=== PATIENT | male | born 1995 | race Caucasian/White ===

== ENCOUNTER 2022-02-05 14:21 | Outpatient (REF) | payer SELFPAY ==
[2022-02-08 11:12] LABS: Hepatitis B Surface Ag Negative (Negative); Hepatitis C Ab w Rflx HCV PCR Negative (Negative)
[2022-02-08 11:20] LABS: HIV-1/2 Ag & Ab Screen Negative (Negative)
[2022-02-08 12:18] LABS: Hep A Total Ab w Rflx IgM Negative (Negative)
== END 2022-02-05 14:22 | disposition home or self-care (01) ==
LOC: LBN 14:21
PROVIDERS: Visit Provider Family Medicine
DX: Z11.59 Encounter for screening for other viral diseases (principal); Z11.4 Encounter for screening for human immunodeficiency virus [HIV]
CPT/HCPCS: 86709; 86803; 87340; 87389

== ENCOUNTER 2022-06-16 06:35 | Emergency (ER) | payer SELFPAY ==
[2022-06-16 06:48] VITALS: BP 117/61; PULSE 59; RESP 16; TEMP 36.7; O2SAT 99
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
[2022-06-16] MEDS: Erythromycin Ophth Oint 3.5 GM TUBE (07:19)
[2022-06-16] MEDS: Tetracaine 0.5% 4 ML BTL (07:19)
[2022-06-16] MEDS: Fluorescein STRIPS 100/BOX 1 MG (07:19)
== END 2022-06-16 07:22 | disposition home or self-care (01) ==
PROVIDERS: Emergency Provider Student in an Organized Health Care Education/Training Program
DX: S05.01XA Injury of conjunctiva and corneal abrasion without foreign body, right eye, initial encounter (principal); H11.31 Conjunctival hemorrhage, right eye; X58.XXXA Exposure to other specified factors, initial encounter
CPT/HCPCS: 99283; 99284

== ENCOUNTER 2023-02-17 17:51 | Outpatient (REF) | payer SELFPAY ==
[2023-02-20 10:05] LABS: HIV-1/2 Ag & Ab Screen Negative (Negative)
[2023-02-21 10:32] LABS: Hep A Total Ab w Rflx IgM Negative (Negative)
[2023-02-21 11:11] LABS: Hepatitis C Ab w Rflx HCV PCR Negative (Negative)
[2023-02-21 13:34] LABS: Hepatitis B Surface Ag Negative (Negative)
== END 2023-02-17 17:52 | disposition home or self-care (01) ==
LOC: LBN 17:51
PROVIDERS: Visit Provider Physician Assistant Medical
DX: Z13.9 Encounter for screening, unspecified (principal)
CPT/HCPCS: 86709; 86803; 87340; 87389

== ENCOUNTER 2023-06-15 21:26 | Outpatient (REF) | payer SELFPAY | END 2023-06-15 21:27 | disposition home or self-care (01) | LOC: NCHCN 21:26 | PROVIDERS: Visit Provider Physician Assistant | DX: L02.212 Cutaneous abscess of back [any part, except buttock and flank] (principal) | CPT/HCPCS: 87077; 87070; 87186; 87205 ==

== ENCOUNTER 2023-06-17 21:01 | Emergency (ER) | payer SELFPAY ==
[2023-06-17 21:05] VITALS: BP 132/74; PULSE 53; RESP 16; TEMP 36.5; O2SAT 100
--- NOTE | 2023-06-17 21:29 | W.ED.GENAD ---
Discharge Plan Disposition Patient Disposition: Home Discharge Details Clinical Impression: Infected sebaceous cyst Primary Care Provider: None,None ED Provider: Mario Lay Home Meds and New Rx's Prescriptions: New sulfamethoxazole-trimethoprim [Bactrim DS] 800-160 mg tablet 1 tab PO BID 5 Days Qty: 10 0RF No Action mupirocin 2 % ointment 1 applic topical TID Qty: 15 0RF Discharge Instructions Additional Instructions: You were seen in the emergency department for your cyst which had signs of infection. Your abscess was opened and drained. You are receiving antibiotic which should treat the infection from your swab at urgent care. A loop drain was left in place. As we discussed. Please try to leave this task for 5 to 6 days to ensure that your abscess heals from the bottom up rather than from the top down. As we discussed if you develop fevers chills nausea vomiting or if you cannot tolerate your antibiotics please return to the emergency department. If you have recurrent abscesses you may consider following up with your primary care provider. Please start taking your antibiotics in the morning tomorrow. Discharge Data Discharge Date/Time-TO BE ENTERED AT DEPARTURE: 06/17/23 22:05 Medical Decision Making This is an overall very well-appearing normothermic and not tachycardic 28-year-old male with an infected sebaceous cyst which is formed an abscess 2 days status post I&D now with ultrasound consistent with recurrent abscess for which patient will undergo recurrent I&D. Please see procedure note but I placed a loop drain and instructed the patient and his girlfriend on managing loop drain. Patient had Staph aureus on his preliminary swab result. We will cover for MRSA with trimethoprim/sulfamethoxazole and I gave patient first dose in the ED. No pain out of proportion to suggest necrotizing soft tissue infection. Patient's abscess is not overlying his spine so my suspicion for any cutaneous manifestation of a neurological malignancy is exceedingly low as I do not feel that the patient requires cross-sectional imaging. Patient and I did discuss that if he did have recurrent abscesses at this site that he should follow-up with her primary care provider. I given return indications including any fevers chills could not tolerate his antibiotics as result of nausea or vomiting or if he had any other concerns that he should return to the emergency department. HPI General Date/Time Provider Initiated Documentation: 06/17/23 21:06. 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 He had an abscess 6 months ago which required incision and drainage and a loop drain was placed. He was also seen 2 days ago after his abscess became red and more uncomfortable. He denies specific trauma to this area. He was seen at urgent care and he had an incision and drainage performed. A culture swab was sent. He noticed worsening swelling and feels as if his abscess has recurred. He denies fevers chills nausea vomiting chest pain shortness of breath. From urgent care, he was observed off of antibiotics. He reports subsequently he has had worsening pain Related Data Home Medications Medication Instructions Recorded Confirmed mupirocin 2 % topical ointment 1 applic topical TID #15 grams 06/15/23 06/17/23 sulfamethoxazole 800 1 tab PO BID 5 days #10 tabs 06/17/23 mg-trimethoprim 160 mg tablet (Bactrim DS) Previous Rx's Medication Instructions Recorded mupirocin 2 % topical ointment 1 applic topical TID #15 grams 06/15/23 sulfamethoxazole 800 1 tab PO BID 5 days #10 tabs 06/17/23 mg-trimethoprim 160 mg tablet (Bactrim DS) Allergies Allergy/AdvReac Type Severity Reaction Status Date / Time No Known Allergies Allergy Unverified 06/17/23 21:12 General Stated Complaint: RashLesion SEBASTIAN: 5 PFSH All Active Problems (Updated 06/17/23 @ 22:03 by Mario Lay MD) Infected sebaceous cyst (Acute) Social History Smoking/Tobacco Use Status: Never Smoking risk assessment performed?: Yes Alcohol Intake: never Drug use: Never Substance use type: does not use Do you feel safe at home: Yes Do you feel safe in your relationship?: Yes Exam Narrative Exam Narrative: General: Well-appearing in no acute distress speaking in complete sentences. Head: Normocephalic, atraumatic. Eye: Extraocular eye movements intact. No conjunctival injection. No scleral icterus. Ear, nose, mouth, throat: Grossly normal inspection. Normal voice, handling secretions normally. Neck: Trachea midline. Cardiovascular: Well-perfused distal extremities. Back: Chest on the right lateral side of the mid thoracic back off of midline there is a fluctuant and erythematous area with tenderness. No spontaneous drainage. No pain out of proportion. Respiratory: Nonlabored respiration. Gastrointestinal: Nondistended abdomen. Musculoskeletal: No edema. Moving all 4 extremities spontaneously. Skin: Normal for age and race, grossly normal temperature and turgor. No acute rash. Neurologic: Alert and appropriate, no apparent acute deficits. Psychiatric: Mood and manner are appropriate. Grooming and personal hygiene are appropriate. Course Vital Signs Vital signs: Vital Signs Temperature 36.5 C 06/17/23 21:05 Pulse 53 L 06/17/23 21:05 Respiratory Rate 16 06/17/23 21:05 Blood Pressure 132/74 06/17/23 21:05 Pulse Oximetry 100 06/17/23 21:05 Temperature 36.5 C 06/17/23 21:05 Pulse 53 L 06/17/23 21:05 Respiratory Rate 16 06/17/23 21:05 Respiratory Effort Normal 06/17/23 21:08 Blood Pressure 132/74 06/17/23 21:05 Pulse Oximetry 100 06/17/23 21:05 Oxygen Delivery Method Room Air 06/17/23 21:05 Oxygen Flow Rate 0 06/17/23 21:05 Pain Level 0 06/17/23 21:05 Procedures Abscess I/D Site: Back Side (if applicable): Right Local Anesthetic: Lidocaine 2% and With Epi Amount of anesthesia used (mL): 8 Technique: Incised with #11 Blade Amount of fluid expressed (mL): 6 Irrigation: No Packing used?: Chuck Drain (Loop drain using tenderness drain) Complications: Other ( Sterile prep was used prior to incision and drainage which patient tolerated well with no complications.) POCUS Exam (ED) Limited Soft Tissue Exam DATE OF EXAM: 06/17/23 TIME OF EXAM: 22:06 LOCATION OF EXAM: Upper back/right side REASON FOR EXAM: Abscess Exam Complete DIFFERENTIAL DIAGNOSES: Positive swirl sign with anechoic fluid collection with posterior enhancement most consistent with abscess.
[2023-06-17] MEDS: Ibuprofen 400 MG TAB PO (22:06)
[2023-06-17] MEDS: Sulfameth/Trimeth DS TAB 1 TAB PO (22:06)
[2023-06-17] MEDS: Acetaminophen 500 MG TAB 1000 MG PO (22:06)
== END 2023-06-17 22:05 | disposition home or self-care (01) ==
PROVIDERS: Emergency Provider Emergency Medicine
DX: L72.3 Sebaceous cyst (principal)
CPT/HCPCS: 10061; 76604; 99283; 99284

== ENCOUNTER 2024-01-15 15:53 | Emergency (ER) | payer SELFPAY ==
[2024-01-15 15:54] VITALS: BP 127/73; PULSE 70; RESP 12; TEMP 36.6; O2SAT 100
--- NOTE | 2024-01-15 16:15 | DI.RAD_ITS ---
Exam(s) XR KNEE LT 4V+ EXAM: XR KNEE LT 4V+ CLINICAL HISTORY: L knee injury (hyperextension). TECHNIQUE: 2D digital imaging was performed. COMPARISON: No exams were available for comparison FINDINGS: Four views. No evidence of fracture but there is a joint effusion signifying probable internal derangement. Bone density normal. No osseous lesions. No joint space narrowing. IMPRESSION: No acute osseous findings in left knee but there is a joint effusion signifying probable internal santosh angement. Appropriate follow-up is recommended. DATA REPOSITORY: RADIATION DOSE DELIVERED:
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
--- NOTE | 2024-01-15 16:56 | DI.VRAD_ITS ---
PROCEDURE INFORMATION: Exam: XR Left Knee Exam date and time: 01/15/2024 4:27 PM Age: 28 years old Clinical indication: Injury or trauma; Other: L knee injury (hyperextension); Sprain or strain; Patella or knee; Left TECHNIQUE: Imaging protocol: Radiologic exam of the left knee. Views: 4 or more views. COMPARISON: No relevant prior studies available. FINDINGS: Bones/joints: Small knee joint effusion. Neutral patellar tracking. Soft tissues: Normal. IMPRESSION: No acute fracture or dislocation. Dictated and Authenticated by: Greg Licona MD. Ordering:SACHI Love MD
== END 2024-01-15 17:18 | disposition home or self-care (01) ==
PROVIDERS: Emergency Provider Nurse Practitioner Family
DX: M25.562 Pain in left knee (principal); M25.462 Effusion, left knee
CPT/HCPCS: 99283; 73564

== ENCOUNTER → 2024-02-02 03:19 | Outpatient (CLI) | payer SELFPAY ==
--- NOTE | 2024-02-02 07:45 | DI.MRI_ITS ---
Exam(s) MR LOWER JOINT LT WO EXAM: MR LOWER JOINT LT WO CLINICAL HISTORY: L KNEE PAIN,INTERNAL DERANGEMENT,M23.92. TECHNIQUE: Multiplanar multisequence MRI was performed. COMPARISON: CR,XR XR KNEE LT 4V+ from 01/15/2024 FINDINGS: BONES: Contusion of the medial femoral condyle posteriorly. Contusion of the anterior aspects of bot h lateral and medial proximal tibia. JOINTS: A small joint effusion is present. Articular cartilage: Patellofemoral joint: Articular cartilage is unremarkable. Medial femoral tibial joint: Articular cartilage is unremarkable. Lateral femoral tibial joint: Articular cartilage is unremarkable. TENDONS: Extensor mechanism: Unremarkable. Medial retinaculum: Unremarkable. Lateral retinaculum: Unremarkable. Popliteus: Unremarkable. high signal in the proximal aspect of the medial gastrocnemius tendon versus posterior capsule at the posteromedial aspect of the medial femoral condyle MUSCLES: Unremarkable. MENISCI: The medial meniscus is unremarkable. The lateral meniscus is unremarkable. SOFT TISSUES: Small popliteal cyst. LIGAMENTS: Anterior Cruciate: Mild edema. No focal tear. Posterior Cruciate: Unremarkable. Medial Collateral:Unremarkable. Lateral Collateral: Unremarkable. IMPRESSION: Bone contusions of the anterior aspect of the tibia and medial femoral condyle, non articular. High signal at the origin of the medial head of the gastrocnemius/posterior capsule consistent with p artial tear. Small joint effusion. Question of ACL sprain. DATA REPOSITORY:
== END ==
PROVIDERS: Visit Provider Student in an Organized Health Care Education/Training Program
DX: M25.562 Pain in left knee (principal); M25.462 Effusion, left knee; M23.8X2 Other internal derangements of left knee; S83.8X2A Sprain of other specified parts of left knee, initial encounter
CPT/HCPCS: 73721

== ENCOUNTER 2024-06-04 20:24 | Outpatient (REF) | payer SELFPAY ==
--- OUTSIDE RECORDS SUMMARY | 2024-06-04 20:27 | XMS_ITS | Encounter Summary ---
Author Organization [facility] Address [address] [place] [address] Care Team Providers Care Pillow Filler Name Role Phone None, Provider Primary Care Provider Unavailabl e Encounter Details Date Type Department Care Team (Late st Contact Info) Description 02/18/2023 Lab Requisition [facility] Pathology & Laboratory Medicine - [facility] [address] [place], [place] [address] Outr Resulting Lab, Provider Social History Tobacco Use Types Packs/Day Years Used Date Smoking Tobacco: Never Smokeless Tobacco: Never Alcohol Use Standard Drinks/Week Comments Yes 0 (1 standard drink = 0.6 oz pur e alcohol) occasional Sex and Gender Information Value Date Recorded Sex Assigned at Not on file Gender Identity Male 03/20/2022 22:48 EDT Sexual Orientation Not on file documented as of this encounter Plan of Treatment Not on file documented as of this encounter Procedures Procedure Name Priority Date/Time Associated Diagnosis Comments HOLD SST Today 02/17/2023 14:30 EDT HEPATITIS C AB W REFLEX TO HCV RNA BY PCR Today 02/17/2023 14:30 EDT HEPATITIS A TOTAL ANTIBODY W REFLEX Today 02/17/2023 14:30 EDT HEPATITIS B SURFACE ANTIGEN Today 02/17/2023 14:30 EDT documented in this encounter Results * HOLD SST (02/17/2023 14:30 EDT) Hold Hold 02/18/2023 20:16 EDT [facility] Blood VENOUS BLOOD / Unknown 02/17/2023 14:30 EDT 02/18/2023 19:12 EDT Provider Outr Resulting Lab LAB INFO SER VICE AND SUPPORT & PHONE RESULT Performing Organization Address [facility]/ZIP Co de Phone Number [facility] [address] [place] [address] * HEPATITIS B SURFACE ANTIGEN (02/17/2023 14:30 EDT) Hep B Surface Ag Negative Negative 02/21/2023 13:30 EDT [facility] Blood VENOUS BLOOD / Unknown 02/17/2023 14:30 EDT 02/18/2023 18:58 EDT Provider Outr Resulting Lab CHEMISTRY & BLOOD GAS ORDERABLES Performing Organization Address [facility] Co de Phone Number [facility] [address] [place] [address] * HEPATITIS C AB W REFLEX TO HCV RNA BY PCR (02/17/2023 14:30 EDT) Hep C Antibody Negative Negative 02/21/2023 11:06 EDT [facility] Blood VENOUS BLOOD / Unknown 02/17/2023 14:30 EDT 02/18/2023 18:58 EDT Provider Outr Resulting Lab CHEMISTRY & BLOOD GAS ORDERABLES Performing Organization Address [facility] Co de Phone Number [facility] [address] [place] [address] * HEPATITIS A TOTAL ANTIBODY W REFLEX (02/17/2023 14:30 EDT) Hepatitis A Antibody, Total Negative Negative 02/21/2023 10:27 EDT [facility] Blood VENOUS BLOOD / Unknown 02/17/2023 14:30 EDT 02/18/2023 18:58 EDT Narrative [facility] - 02/21/2023 10:27 EDT The result of this assay can be falsely elevated (Positive) due to the consumption of Biotin. Provider Outr Resulting Lab CHEMISTRY & BLOOD GAS ORDERABLES [facility] [address] [place] [address] documented in this encounter Visit Diagnoses Not on filedocumented in this encounter Care Teams Pillow Filler Relationship Specialty Start Date End Date None, Provider PCP - General 03/20/22 documented as of this encounter
--- OUTSIDE RECORDS SUMMARY | 2024-06-04 20:27 | XMS_ITS | Referral Summary ---
Author Organization [facility] Address [address] [place] [address] Care Team Providers Care Water Systems Engineer Name Role Phone None, Provider Primary Care Provider Unavailabl e Encounters Date Type Department Care Team Description 06/04/2024 Lab Requisition [facility] Pathology & Laboratory [address] [address] Outr Resulting Lab, Provider 06/04/2024 Lab Requisition [facility] & [facility] [address] [address] Outr Resulting Lab, Provider from Last 3 Months Allergies No known active allergies Medications No known medications Active Problems No known active problems Social History Tobacco Use Types Packs/Day Years Used Date Smoking Tobacco: Never Smokeless Tobacco: Never Alcohol Use Standard Drinks/Week Comments Yes 0 (1 standard drink = 0.6 oz pur e alcohol) occasional Sex and Gender Information Value Date Recorded Sex Assigned at Not on file Gender Identity Male 03/20/2022 22:48 EDT Sexual Orientation Not on file Last Filed Vital Signs Vital Sign Reading Time Taken Comments Blood Pressure 140/76 03/20/2022 2254 EDT Pulse - - Temperature 36.9 ??C (98.4 ??F) 03/20/2022 2259 EDT Respiratory Rate 18 03/20/2022 2248 EDT Oxygen Saturation 98% 03/20/2022 2254 EDT Inhaled Oxygen Concentration - - Weight - - Height - - Body Mass Index - - Plan of Treatment Not on file Procedures Procedure Name Priority Date/Time Associated Diagnosis Comments HEPATITIS C AB W REFLEX TO HCV RNA BY PCR Today 02/17/2023 14:30 EDT from Last 3 Months or Most Recently Relevant to Health Maintenance Results * HEPATITIS C AB W REFLEX TO HCV RNA BY PCR (02/17/2023 14:30 EDT) Hep C Antibody Negative Negative 02/21/2023 11:06 EDT [facility] Blood VENOUS BLOOD / Unknown 02/17/2023 14:30 EDT 02/18/2023 18:58 EDT Provider Outr Resulting Lab CHEMISTRY & BLOOD GAS ORDERABLES [facility] [address] [place] [address] from Last 3 Months or Most Recently Relevant to Health Maintenance Care Teams Water Systems Engineer Relationship Specialty Start Date End Date None, Provider PCP - General 03/20/22
--- OUTSIDE RECORDS SUMMARY | 2024-06-04 20:27 | XMS_ITS | Encounter Summary ---
Author Organization [facility] Address [address] [place] [address] Care Team Providers Care Process Control Manager Name Role Phone None, Provider Primary Care Provider Unavailabl e Encounter Details Date Type Department Care Team (Late st Contact Info) Description 02/06/2022 Lab Requisition [facility] Pathology & Laboratory Medicine - [facility] [address] [place], [place] [id number] Outr Resulting Lab, Provider Social History Tobacco Use Types Packs/Day Years Used Date Smoking Tobacco: Never Assessed Sex and Gender Information Value Date Recorded Sex Assigned at Not on file Gender Identity Male 03/20/2022 22:48 EDT Sexual Orientation Not on file documented as of this encounter Plan of Treatment Not on file documented as of this encounter Procedures Procedure Name Priority Date/Time Associated Diagnosis Comments HEPATITIS C AB W REFLEX TO HCV RNA BY PCR Routine 02/05/2022 13:20 EDT HEPATITIS A TOTAL ANTIBODY W REFLEX Routine 02/05/2022 13:20 EDT HEPATITIS B SURFACE ANTIGEN Routine 02/05/2022 13:20 EDT documented in this encounter Results * HEPATITIS B SURFACE ANTIGEN (02/05/2022 13:20 EDT) Hep B Surface Ag Negative Negative 02/08/2022 11:06 EDT [facility] Blood VENOUS BLOOD / Unknown 02/05/2022 13:20 EDT 02/06/2022 21:21 EDT Provider Outr Resulting Lab CHEMISTRY & BLOOD GAS ORDERABLES Performing Organization Address City/[facility]/ZIP Co de Phone Number [facility] [address] [place] [address] * HEPATITIS C AB W REFLEX TO HCV RNA BY PCR (02/05/2022 13:20 EDT) Hep C Antibody Negative Negative 02/08/2022 11:07 EDT [facility] Blood VENOUS BLOOD / Unknown 02/05/2022 13:20 EDT 02/06/2022 21:21 EDT Provider Outr Resulting Lab CHEMISTRY & BLOOD GAS ORDERABLES Performing Organization Address [facility] Co de Phone Number [facility] [address] [place] [address] * HEPATITIS A TOTAL ANTIBODY W REFLEX (02/05/2022 13:20 EDT) Hepatitis A Antibody, Total Negative Negative 02/08/2022 12:13 EDT [facility] Blood VENOUS BLOOD / Unknown 02/05/2022 13:20 EDT 02/06/2022 21:21 EDT Narrative [facility] - 02/08/2022 12:13 EDT The result of this assay can be falsely elevated (Positive) due to the consumption of Biotin. Provider Outr Resulting Lab CHEMISTRY & BLOOD GAS ORDERABLES Performing Organization Address [facility] Co de Phone Number [facility] [address] [place] [address] documented in this encounter Visit Diagnoses Not on filedocumented in this encounter Care Teams Process Control Manager Relationship Specialty Start Date End Date None, Provider PCP - General 03/20/22 documented as of this encounter
--- OUTSIDE RECORDS SUMMARY | 2024-06-04 20:27 | XMS_ITS | Encounter Summary ---
Author Organization [facility] Address [address] [place] [address] Care Team Providers Care V Belt Skiver Name Role Phone None, Provider Primary Care Provider Unavailabl e Encounter Details Date Type Department Care Team (Late st Contact Info) Description 02/07/2022 Lab Requisition [facility] Pathology & Laboratory Medicine - [facility] [address] [place], [place] [id number] Outr Resulting Lab, Provider Social History Tobacco [...] Procedure Name Priority Date/Time Associated Diagnosis Comments HIV 1/2 ANTIGEN AND ANTIBODY, 4TH GENERATION Routine 02/05/2022 13:20 EDT documented in this encounter Results * HIV 1/2 ANTIGEN AND ANTIBODY, 4TH GENERATION (02/05/2022 13:20 EDT) HIV 1 and 2 Antibody/p24 Antigen, 4th Generation Negative Negative 02/08/2022 11:15 EDT [facility] Comment:If acute HIV-1 infec tion is suspected in a high risk patient, submit plasma specimen for HIV-1 RNA quantitation test. Blood VENOUS BLOOD / Unknown 02/05/2022 13:20 EDT 02/08/2022 7:56 EDT Narrative [facility] - 02/08/2022 11:15 EDT Fourth Generation assay performed on the Siemens Goojitsuaur XPT. Provider Outr Resulting Lab IMMUNOLOGY A ND SEROLOGY ORDERABLES [facility] [address] [place] [address] documented in this encounter Visit Diagnoses Not on filedocumented in this encounter Care Teams V Belt Skiver Relationship Specialty Start Date End Date None, Provider PCP - General 03/20/22 documented as of this encounter
--- OUTSIDE RECORDS SUMMARY | 2024-06-04 20:27 | XMS_ITS | Encounter Summary ---
Author Organization [facility] Address [address] [place] [address] Care Team Providers Care Sports Doctor Name Role Phone None, Provider Primary Care Provider Unavailabl e Encounter Details Date Type Department Care Team (Late st Contact Info) Description 02/18/2023 Lab Requisition [facility] Pathology & Laboratory Medicine - [facility] [address] [place], [place] [id number] Outr Resulting Lab, Provider Social History Tobacco [...] 1/2 ANTIGEN AND ANTIBODY, 4TH GENERATION Routine 02/17/2023 14:30 EDT documented in this encounter Results * HIV 1/2 ANTIGEN AND ANTIBODY, 4TH GENERATION (02/17/2023 14:30 EDT) HIV 1 and 2 Antibody/p24 Antigen, 4th Generation Negative Negative 02/20/2023 10:00 EDT [facility] Comment:If acute HIV-1 infec tion is suspected in a high risk patient, submit plasma specimen for HIV-1 RNA quantitation test. Blood VENOUS BLOOD / Unknown 02/17/2023 14:30 EDT 02/18/2023 18:57 EDT Narrative [facility] - 02/20/2023 10:00 EDT Fourth Generation assay performed on the Siemens Centaur XPT. Provider Outr Resulting Lab IMMUNOLOGY A ND SEROLOGY ORDERABLES [facility] [address] [place] [address] documented in this encounter Visit Diagnoses Not on filedocumented in this encounter Care Teams Sports Doctor Relationship Specialty Start Date End Date None, Provider PCP - General 03/20/22 documented as of this encounter
--- OUTSIDE RECORDS SUMMARY | 2024-06-04 20:27 | XMS_ITS | Encounter Summary ---
Author Organization [facility] Address [address] [place] [address] Care Team Providers Care Production Line Solderer Name Role Phone None, Provider Primary Care Provider Unavailabl e Encounter Details Date Type Department Care Team (Late st Contact Info) Description 06/04/2024 Lab Requisition [facility] Pathology & Laboratory Medicine - [facility] [address] [place], [place] [address] Outr Resulting Lab, Provider Social History Tobacco [...] as of this encounter Plan of Treatment Scheduled Orders Name Type Priority Associated Diagnoses Orde r Schedule HIV 1/2 ANTIGEN AND ANTIBODY , 4TH GENERATION Lab Routine Ordered: 024 documented as of this encounter Visit Diagnoses Not on filedocumented in this encounter Care Teams Production Line Solderer Relationship Specialty Start Date End Date None, Provider PCP - General 03/20/22 documented as of this encounter
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
--- OUTSIDE RECORDS SUMMARY | 2024-06-04 20:27 | XMS_ITS | Encounter Summary ---
Author Organization [facility] Address [address] [place] [address] Care Team Providers Care Corporate Security Officer Name Role Phone None, Provider Primary Care Provider Unavailabl e Encounter Details Date Type Department Care Team (Late st Contact Info) Description 06/04/2024 Lab Requisition [facility] Pathology & Laboratory Medicine - [facility] [address] [place], [place] [phone] Outr Resulting Lab, Provider Social History Tobacco [...] Type Priority Associated Diagnoses Orde r Schedule HEPATITIS C AB W REFLEX TO H CV RNA BY PCR Lab Routine Ordered: 024 HEPATITIS B SURFACE ANTIGEN Lab Routine Ordered: 06/04/2024 documented as of this encounter Visit Diagnoses Not on filedocumented in this encounter Care Teams Corporate Security Officer Relationship Specialty Start Date End Date None, Provider PCP - General 03/20/22 documented as of this encounter
--- OUTSIDE RECORDS SUMMARY | 2024-06-04 20:27 | XMS_ITS | Clinical Summary ---
Author Organization [facility] Address [address] [place] [address] Care Team Providers Care Structural Technician Name Role Phone None, Provider Primary Care Provider Unavailabl e Allergies No known active allergies Medications No known medications Active Problems No known active problems Encounters Date Type Department Care Team Description 06/04/2024 Lab Requisition [facility] Pathology & Laboratory [address] [address] Outr Resulting Lab, Provider 06/04/2024 Lab Requisition [facility] Pathology & Laboratory [facility] [address] [place] [address] Outr Resulting Lab, Provider from Last 3 Months Surgical History Surgery Date Site/Laterality Comments EXTERNAL EAR SURGERY Social History Tobacco Use Types Packs/Day Years Used Date Smoking Tobacco: Never Smokeless Tobacco: Never Alcohol Use Standard Drinks/Week Comments Yes 0 (1 standard drink = 0.6 oz pur e alcohol) occasional Sex and Gender Information Value Date Recorded Sex Assigned at Not on file Gender Identity Male 03/20/2022 22:48 EDT Sexual Orientation Not on file Obstetrics History Last Filed Vital Signs Vital Sign Reading Time Taken Comments Blood Pressure 140/76 03/20/2022 2254 EDT Pulse - - Temperature 36.9 ??C (98.4 ??F) 03/20/2022 2259 EDT Respiratory Rate 18 03/20/2022 2248 EDT Oxygen Saturation 98% 03/20/2022 2254 EDT Inhaled Oxygen Concentration - - Weight - - Height - - Body Mass Index - - Plan of Treatment Health Maintenance Due Date Last Done Comments Hepatitis B Vaccine (1 of 3 - 19+ 3-dose series) 2012 COVID-19 Vaccine (2022- season) 2023 Hepatitis C Screen Completed 02/17/2023, 02/05/2022 Procedures Procedure Name Priority Date/Time Associated Diagnosis Comments HEPATITIS C AB W REFLEX TO HCV RNA BY PCR Today 02/17/2023 14:30 EDT from Last 3 Months or Most Recently Relevant to Health Maintenance Results * HEPATITIS C AB W REFLEX TO HCV RNA BY PCR (02/17/2023 14:30 EDT) Hep C Antibody Negative Negative 02/21/2023 11:06 EDT [facility] Blood VENOUS BLOOD / Unknown 02/17/2023 14:30 EDT 02/18/2023 18:58 EDT Provider Outr Resulting Lab CHEMISTRY & BLOOD GAS ORDERABLES [facility] [address] [place] [address] from Last 3 Months or Most Recently Relevant to Health Maintenance Care Teams Structural Technician Relationship Specialty Start Date End Date None, Provider PCP - General 03/20/22
[2024-06-05 09:06] LABS: Hepatitis B Surface Ag Negative (Negative)
[2024-06-05 09:39] LABS: Hepatitis C Ab w Rflx HCV PCR Negative (Negative)
[2024-06-05 09:52] LABS: HIV-1/2 Ag & Ab Screen Negative (Negative)
== END 2024-06-04 20:25 | disposition home or self-care (01) ==
LOC: LBN 20:24
PROVIDERS: Visit Provider Nurse Practitioner Family
DX: Z13.9 Encounter for screening, unspecified (principal)
CPT/HCPCS: 86803; 87340; 87389

== ENCOUNTER 2025-08-20 11:47 | Outpatient (REF) | payer SELFPAY ==
[2025-08-21 18:56] LABS: Hepatitis C Ab w Rflx HCV PCR Negative (Negative)
[2025-08-21 19:19] LABS: HIV-1/2 Ag & Ab Screen Negative (Negative)
== END 2025-08-20 11:48 | disposition home or self-care (01) ==
LOC: LBN 11:47
PROVIDERS: Visit Provider Nurse Practitioner Family
DX: Z13.9 Encounter for screening, unspecified (principal)
CPT/HCPCS: 86803; 87340; 87389